=== PATIENT | female | born 1995 | race Caucasian/White ===

== ENCOUNTER 2024-06-18 11:06 | Inpatient (IN) ==
--- NOTE | 2024-06-18 11:41 | Emergency Department Note ---
Impression & Plan Depression with suicidal ideation, Paranoia, Delusion ED Provider Note NAME: CYN DISLA AGE: 29 SEX: F : 1995 ARRIVES VIA: Walk-In INFORMANT: Patient, ED PROVIDER(S): Luis Angel Katz MD CHIEF COMPLAINT: Suicidal ideation HPI: This is a 29-year-old female presenting for SI and delusions. Patient states that she has had progressive worsening of her emotions over the past few days. She notes this all worsened last night where she feels the somewhat [id number]. She denies any actual hallucinations, visual or auditory. She does note she feels very paranoid at night when attempting to sleep. She is currently homeless and sleeps in a car. She notes getting a possible diagnosis of PPD previously. She has no current plan. She does feel that her thought process is nonnormal she is having delusions. ROS: See above HPI for pertinent positives & negatives. A total of 10 systems reviewed and were otherwise negative. PAST MEDICAL HISTORY: See Below PAST SURGICAL HISTORY: See Below FAMILY HISTORY: See Below SOCIAL HISTORY: See Below HOME MEDICATIONS: See Below ALLERGIES: See Below VITALS: See Below PHYSICAL EXAMINATION: General: resting comfortably in no acute distress Head: Normocephalic and atraumatic Eyes: Normal inspection, extraocular muscles intact Ear, nose, throat: Normal external exam Neck: Normal range of motion Respiratory: speaking in full sentences, symmetric chest rise, no respiratory distress Cardiovascular: Regular rate/rhythm Extremities: moves all extremities Neuro: The patient awake and alert, appropriately conversive, symmetric faces, no focal deficits Psych: Clear linear thought process, mildly anxious MEDICAL DECISION MAKING: This is a 29-year-old female presented for SI/delusions. Will do screening medical workup for psychiatric clearance. -Bloodwork is reviewed showing no significant leukocytosis, anemia, electrolyte or creatinine abnormality. UA reveals signs of contamination -Patient medically clear for psychiatric placement -Patient is excepted to 3 S here Differential diagnosis: SI, bipolar, psychosis Diagnostics interpreted by me: ECG: None Cardiac Monitoring: An order was placed for continuous cardiac monitoring. The monitor shows a rate of 83 with sinus rhythm. Past Med/Surg History Problem List (Updated 06/18/24 @ 18:32 by Luis Angel Katz MD) Delusion (Acute) Paranoia (Acute) Depression with suicidal ideation (Acute) Social History Smoking Status: Current every day smoker Tobacco Type: Cigarettes Preferred Language: Yakut Feels Safe at Home: No Gender Identity: Female Results & Data (ED) Vital Signs Vital Signs - 24 hr 06/18/24 11:13 06/18/24 13:09 06/18/24 16:47 Temperature 36.5 C 36.9 C Temperature Source Temporal Artery Scan Oral Pulse Rate 112 H Pulse Rate [Right Finger] 69 83 Pulse Rhythm [Right Finger] Regular Pulse Strength Normal Pulse Strength [Right Finger] Normal Respiratory Rate 19 18 16 Respiratory Effort / Characteristics Non-Labored Spontaneous Non-Labored Spontaneous Non-Labored Spontaneous Respiratory Depth Normal Normal Normal Respiratory Pattern Regular Regular Blood Pressure 146/85 H Blood Pressure [Right Arm] 124/67 116/82 Blood Pressure Mean 105 Blood Pressure Mean [Right Arm] 86 93 Blood Pressure Position Sitting Blood Pressure Position [Right Arm] Semi-fowlers Pulse Oximetry 97 98 96 Oxygen Delivery Method Room Air Room Air Room Air Sepsis Recent Fever Within 48 Hours No Sepsis New/Unexplained Change in Mental Status No Sepsis Action Taken by Nursing No Action Required Laboratory Data 06/18/24 11:30 06/18/24 11:30 Lab Results 06/18/24 Range/Units 11:30 WBC 10.11 (4.8-10.8) K/ul RBC 4.92 (4.20-5.40) M/uL Hgb 14.8 (12.0-16.0) g/dl Hct 44.3 (37.0-47.0) % MCV 90.0 (80.0-100.0) fL MCH 30.1 (25.0-34.0) pg MCHC 33.4 (32.0-36.0) g/dL RDW Std Deviation 42.9 (36.4-46.3) fL RDW Coeff of Mireille 13.0 (11.5-14.5) % Plt Count 271 (130-400) K/uL MPV 10.9 (9.4-12.4) fL Immature Gran % (Auto) 0.4 % Neut % (Auto) 62.9 % Lymph % (Auto) 28.1 % [place] % (Auto) 5.8 % Eos % (Auto) 2.3 % Baso % (Auto) 0.5 % Neut # (Auto) 6.36 (1.40-6.50) K/uL Lymph # (Auto) 2.84 (1.20-3.40) K/uL [place] # (Auto) 0.59 (0.11-0.59) K/uL Eos # (Auto) 0.23 (0.00-0.50) K/uL Baso # (Auto) 0.05 (0.00-0.20) K/uL Immature Gran # (Auto) 0.04 (0.01-0.20) K/uL Sodium 139 (136-145) mmol/L Potassium 4.1 (3.5-5.1) mmol/L Chloride 106 (98-107) mmol/L Carbon Dioxide 29 (21-32) mmol/L Anion Gap 4 (3-11) BUN 14 (6-23) mg/dl Creatinine 0.73 (0.6-1.2) mg/dl Est Cr Clr Drug Dosing 140.8 ml/min eGFR 112.69 BUN/Creatinine Ratio 19.2 (10-20) Glucose 115 H (70-99(Fasting)) mg/dl Calcium 10.3 (8.6-10.3) mg/dl Total Bilirubin 0.4 (0.2-1.0) mg/dl AST 18 (13-39) U/L ALT 19 (7-52) U/L Alkaline Phosphatase 70 (34-104) U/L Total Protein 7.3 (6.0-8.3) gm/dl Albumin 4.3 (3.4-5.0) gm/dl Globulin 3.0 (2.5-4.0) gm/dl Albumin/Globulin Ratio 1.4 (0.9-2) TSH 3.926 (0.300-4.500) uIu/ml Urine Color Yellow Urine Appearance Clear (Clear) Urine pH 6.5 (4.5-7.5) Ur Specific [place] 1.018 (1.000-1.030) Urine Protein Trace H (Negative) Urine Glucose (UA) Negative (Negative) Urine Ketones Negative (Negative) Urine Blood Negative (Negative) Urine Nitrite Negative (Negative) Urine Bilirubin Negative (Negative) Urine Urobilinogen Negative (Negative) Ur Leukocyte Esterase Negative (Negative) Urine WBC (Auto) 6-10 H (0-5) /hpf Urine RBC (Auto) 0-2 (0-2) /hpf U Hyaline Cast (Auto) 0-2 (0-2) /lpf U Epithel Cells (Auto) 6-10 H (0-2) /hpf Urine Bacteria (Auto) 1+ H (None Seen) Urine Test Negative (Negative) Salicylates < 3.0 L (3.0-30) mg/dl Urine Opiates Screen Neg (Neg) Ur Methadone, Qual Neg (Neg) Urine Fentanyl Screen Neg (Neg) Acetaminophen < 3 L (10-30) ug/ml Urine Barbiturates Neg (Neg) Ur Phencyclidine (PCP) Neg (Neg) U Amphetamin/Meth Scrn Neg (Neg) MDMA (Ecstasy) Screen Neg (Neg) U Benzodiazepines Scrn Neg (Neg) Ur Cocaine Metabolite Neg (Neg) U Marijuana (THC) Screen Pos H (Neg) Ethyl Alcohol mg/dL < 10.0 (<10.0) mg/dl SARS-CoV-2, RNA, NAAT NEGATIVE (NEGATIVE) Discharge Plan Visit Data Chief Complaint: Mental Health Evaluation Stated Complaint: MENTAL HEALTH, SWITCHING EMOTIONS/DELUSIONS ED Provider: Luis Angel Katz Discharge Problem: Depression with suicidal ideation, Paranoia, Delusion Patient Disposition: Home - Self-Care Discharge Instructions Interventions: ED Discharge Assessment Last Done: 06/18/24 16:48
[2024-06-18 11:56] LABS: Basophils # (auto) 0.05 K/uL (0.00-0.20); Basophils % (auto) 0.5 %; Eosinophils # (auto) 0.23 K/uL (0.00-0.50); Eosinophils % (auto) 2.3 %; Hematocrit (blood only) 44.3 % (37.0-47.0); Hemoglobin 14.8 g/dl (12.0-16.0); Immature Granulocytes # (auto) 0.04 K/uL (0.01-0.20); Immature Granulocytes % (auto) 0.4 %; Lymphocytes # (auto) 2.84 K/uL (1.20-3.40); Lymphocytes % (auto) 28.1 %; Mean Corpuscular Hemoglobin 30.1 pg (25.0-34.0); Mean Corpuscular Hgb Conc 33.4 g/dL (32.0-36.0); Mean Platelet Volume 10.9 fL (9.4-12.4); Monocytes # (auto) 0.59 K/uL (0.11-0.59); Monocytes % (auto) 5.8 %; Neutrophils # (auto) 6.36 K/uL (1.40-6.50); Neutrophils % (auto) 62.9 %; Platelet Count 271 K/uL (130-400); RDW Standard Deviation 42.9 fL (36.4-46.3); Red Blood Count 4.92 M/uL (4.20-5.40); White Blood Count 10.11 K/ul (4.8-10.8)
[2024-06-18 12:02] LABS: Appearance Urine Clear (Clear); Bacteria Urine Automated 1+ (None Seen); Bilirubin Urine Negative (Negative); Blood Urine Negative (Negative); Cast Urine Automated 0-2 /lpf (0-2); Color Urine Yellow; Glucose Urine UA Negative (Negative); Ketones Urine Negative (Negative); Leukocyte Esterase Urine Negative (Negative); Nitrite Urine Negative (Negative); Protein Urine Trace (Negative); RBC Urine Automated 0-2 /hpf (0-2); Specific Gravity Urine 1.018 (1.000-1.030); Urobilinogen Urine Negative (Negative); pH Urine 6.5 (4.5-7.5)
[2024-06-18 12:07] LABS: Albumin Level 4.3 gm/dl (3.4-5.0); Bilirubin,Total 0.4 mg/dl (0.2-1.0); Calcium 10.3 mg/dl (8.6-10.3); Potassium 4.1 mmol/L (3.5-5.1)
[2024-06-18 12:13] LABS: Albumin Globulin Ratio 1.4 (0.9-2); BUN Creatinine Ratio 19.2 (10-20); Creatinine Clr Calc Pharmacy 140.8 ml/min; Total Protein 7.3 gm/dl (6.0-8.3)
[2024-06-18 12:18] LABS: Salicylate < 3.0 mg/dl (3.0-30)
[2024-06-18 12:32] LABS: Acetaminophen < 3 ug/ml (10-30)
[2024-06-18 12:43] LABS: Amphetamines+Metham, Urine Neg (Neg); Barbiturates, Urine Neg (Neg); Benzodiazepine, Urine Neg (Neg); Cocaine, Urine Neg (Neg); Fentanyl, Urine Neg (Neg); MDMA (Ecstacy), Urine Neg (Neg); Marijuana, Urine Pos (Neg); Methadone, Urine Neg (Neg); Opiate, Urine Neg (Neg); Phencyclidine, Urine Neg (Neg); Thyroid Stimulating Hormone 3.926 uIu/ml (0.300-4.500)
[2024-06-18 13:05] LABS: Pregnancy Test, Urine Negative (Negative)
[2024-06-18] MEDS ORDERED: ALUMINUM/MAGNESIUM SUSP 30 ML UDC PO PRN (15:22)
[2024-06-18] MEDS ORDERED: MAGNESIUM HYDROXIDE SUSP 30 ML UDC PO PRN (15:22)
[2024-06-18] MEDS ORDERED: SODIUM CHLORIDE 0.65% NA SOLN 45 ML (OCEAN) PRN (15:22)
[2024-06-18] MEDS ORDERED: BISMUTH SUBSALICYLATE 262 MG CHEW PO PRN (15:22)
[2024-06-18] MEDS ORDERED: ACETAMINOPHEN 325 MG TAB PO PRN (15:22)
[2024-06-18] MEDS: Patient's ALLERGY Info needs ENTERED STA (20:14)
[2024-06-18] MEDS: hydrOXYzine HCl 25 MG TAB PO PRN (21:46)
[2024-06-19] MEDS: NICOTINE 14 MG/24 HR PATCH TD SCH (09:02)
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
[2024-06-19] MEDS: NICOTINE POLACRILEX 2 MG GUM MT PRN (18:13)
[2024-06-19] MEDS: hydrOXYzine HCl 25 MG TAB PO SCH (21:26)
[2024-06-19] MEDS: ARIPiprazole 5 MG TAB PO SCH (21:26)
[2024-06-20 08:38] LABS: Estimated Average Glucose 117 mg/dl; Hemoglobin A1C 5.7 % (4.5-5.6)
[2024-06-20 08:42] LABS: Chol HDL Ratio 4.9 (0-5)
[2024-06-20 14:23] LABS: Marijuana Quant, GCMS Urine 267 ng/mL (<5)
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
[2024-06-20] MEDS: CHOLECALCIFEROL 125 MCG (5,000 UNITS) TAB PO SCH (15:07)
[2024-06-20] MEDS ORDERED: NICOTINE POLACRILEX 2 MG GUM MT PRN (16:08)
[2024-06-20] MEDS: hydrOXYzine HCl 25 MG TAB PO SCH (21:36)
[2024-06-20] MEDS: hydrOXYzine HCl 25 MG TAB PO PRN (23:03)
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
[2024-06-21] MEDS: ERGOCALCIFEROL 1250 MCG (50,000 UNITS) CAP PO SCH (10:58)
== END 2024-06-21 11:20 | disposition home or self-care (01) | DRG 883 ==
LOC: ED 11:06 → 3S 17:07